=== PATIENT | female | born 1935 | race Caucasian/White ===

== ENCOUNTER 2017-01-19 20:09 | Emergency (ER) | payer MEDICARE, BC ==
--- NOTE | ~2017-01-19 | EKG ---
PATIENT: NAVEED MALONEY UNIT #: [id number] Ventricular Rate: 65 BPM Atrial Rate: 65 BPM P-R Interval: 224 ms QRS Duration: 90 ms Q-T Interval: 408 ms QTC Calculation(Bezet): 424 ms P [place]: 34 degrees Calculated R [place]: 32 degrees Calculated T [place]: 3 degrees Diagnosis Line: Sinus rhythm with 1st degree A-V block Diagnosis Line: Nonspecific ST and T wave abnormality Diagnosis Line: Abnormal ECG Diagnosis Line: No previous ECGs available Diagnosis Line: Confirmed by LANCE SANTILLAN MD ([id number]) on 01/25/2017 Diagnosis Line: 2:27:01 PM INTERPRETING MD: JACQUE SALAS
--- NOTE | ~2017-01-19 | CT4 ---
[facility] A Service [facility] RADIOLOGY TEXT RESULTS PATIENT: NAVEED MALONEY LOCATION: [facility] : 37 UNIT #: [id number] AGE: [address]: Angelina Brandt MD SEX: F ORDER DR: [id number] [place], [place] [address] [id number] MR#: [id number] Acc #: [id number] NAME: NAVEED MALONEY : 1935 SEX: F STUDY DATE/TIME: 01/19/2017 22:48 UNIT: [facility] ROOM: STUDY DESCRIPTION: CT Abd and Pelv Wo Cont Attending Physician: Angelina Brandt M.D. Ordering Physician: Angelina Brandt M.D. Primary Care Physician: Jereym Dejesus Jr., M.D. MEDICAL IMAGING REPORT This report is preliminary unless electronic signature is present EXAM CT abdomen and pelvis without contrast INDICATIONS Generalized abdominal pain today. PROCEDURE Unenhanced CT of the abdomen and pelvis This CT exam was performed with one or more of the following radiation dose reduction techniques: automatic exposure control, adjustment of mA and/or kV according to patient size, and iterative reconstruction. COMPARISON None FINDINGS Abdomen without contrast: Minimal atelectasis in the lung bases. Cardiomegaly. Liver spleen adrenal glands pancreas gallbladder have an unremarkable unenhanced appearance. Moderate colonic stool burden. Nonobstructing calculi in both kidneys. There is no radiodense ureteral calculus or hydronephrosis. Calculi in the kidneys measure up to 5 mm. Pelvis without contrast: No radiodense bladder calculus. Previous hysterectomy. Lower abdominal midline fat-containing hernia measures 4.3 cm. No aggressive appearing bone lesion. [facility] A Service [facility] RADIOLOGY TEXT RESULTS PATIENT: NAVEED MALONEY LOCATION: [facility] : 39 UNIT #: [id number] AGE: [address]: Angelina Brandt MD SEX: F ORDER DR: IMPRESSION 1. No clearly acute finding. 2. Bilateral nonobstructing renal calculi. Dictated by... Dipak Ferreira M.D. THIS IS AN ELECTRONICALLY VERIFIED REPORT Dipak Ferreira M.D. at 01/25/2017 3:05 PM DC/xiomara TD: 01/20/2017 12:24 JOB #: [id number] MEDICAL IMAGING REPORT Page 1 of 1 COPY
--- NOTE | ~2017-01-19 | CR72 ---
[facility] A Service of [facility] RADIOLOGY TEXT RESULTS PATIENT: NAVEED MALONEY LOCATION: [facility] : 37 UNIT #: [id number] AGE: [address]: Angelina Brandt MD SEX: F ORDER DR: [id number] [facility] [address] [place], [place] [address] [id number] E MR#: [id number] Acc #: [id number] NAME: NAVEED MALONEY : 1935 SEX: F STUDY DATE/TIME: 01/19/2017 20:50 UNIT: [facility] ROOM: STUDY DESCRIPTION: CR Chest Single View Portable Attending Physician: Angelina Brandt M.D. Ordering Physician: Angelina Brandt M.D. Primary Care Physician: Jeremy Dejesus Jr., M.D. MEDICAL IMAGING REPORT This report is preliminary unless electronic signature is present EXAM Portable chest INDICATION Shortness of breath and chest pain today. COMPARISON 08/31/2016. FINDINGS Probable small left pleural effusion. This is stable. Atelectasis or consolidation in the left base. Heart size stable. No infiltrates on the right. IMPRESSION Stable probable small left pleural effusion with atelectasis or consolidation in the left base. Dictated by... Keivn Rascon M.D. THIS IS AN ELECTRONICALLY VERIFIED REPORT Kevin Rascon M.D. at 01/20/2017 7:45 PM KIMBERLY/henrietta TD: 01/20/2017 11:12 JOB #: [id number] MEDICAL IMAGING REPORT Page 1 of 1 COPY
[~2017-01-19 20:09] MED LIST: ALEVE; ASPIRIN81 M2 PO; CARBIDOPA-LEVO1 EAC1 PO; DARVOCET-N 1001 TAB; GENACOTE325 MG PO; KEPPRA500 M1 DOB; KLONOPIN0.5 M3 PO; LOPRESSOR PO; MILK OF MA800 MG/5 M PO; MOBIC PO; MULTI VITAMIN1 EACH PO; OVAR; PROVENTIL; QUETIAPINE FUMA25 MG PO; SEROQUEL25 MG DOB; SINEMET 25-2501 EACH PO; SINEMET CR 21 TAB.SA PO; SINEMET CR 51 TAB.SA PO; VICODIN 5/1 TAB 5/50 PO
[2017-01-19 21:08] LABS: URINE SOURCE CLEAN CATCH
[2017-01-19 21:23] LABS: URINE APPEARANCE CLEAR; URINE BLOOD NEG (NEG); URINE COLOR DK YELLOW; URINE GLUCOSE NEG (NEG); URINE KETONE 1+ (NEG); URINE LEUKOCYTE ESTERASE 1+ (NEG); URINE NITRATE NEG (NEG); URINE PROTEIN 1+ (NEG); URINE SPECIFIC GRAVITY 1.029 (1.003-1.035)
[2017-01-19 21:23] LABS: POC - CKMB <1.0 ng/mL (0.0-7.9); POC - TROPONIN <0.05 ng/mL (<=0.05)
[2017-01-19 21:25] LABS: BASOPHIL% 0.5 % (0-2.5); DIFF IND NO; EOSINOPHIL# 0.2 X10e3 (0-0.7); EOSINOPHIL% 1.7 % (0.0-7.0); HEMATOCRIT 38.3 % (35.0-45.0); HEMOGLOBIN 12.4 gm/dL (12.0-16.0); LYMPHOCYTE# 1.3 X10e3 (1.0-3.5); LYMPHOCYTE% 13.1 % (17.0-45.0); MEAN CELL VOLUME 91.3 FL (83-96); MEAN CORPUSCULAR HEMOGLOBIN 29.6 PG (28-34); MEAN CORPUSCULAR HGB CONC 32.4 g/dL (30-36); MEAN PLATELET VOLUME 8.3 FL (6.5-11.5); MONOCYTE# 0.9 X10e3 (0-1.0); MONOCYTE% 8.3 % (3.0-12.0); NEUTROPHIL# 7.9 X10e3 (1.5-7.1); NEUTROPHIL% 76.4 % (40-75); PLATELET COUNT 302 X10e3 (140-420); WHITE BLOOD COUNT 10.3 X10e3 (4.0-10.5)
[2017-01-19 21:28] LABS: CULTURE INDICATED? YES; URINE BACTERIA AUWI NEG (NEGATIVE); URINE SQUAMOUS EPITHELIAL CELL FEW /[HPF]
[2017-01-19 21:40] LABS: PARTIAL THROMBOPLASTIN TIME 28.4 SECONDS (23.5-31.3); PROTHROMBIN TIME (PATIENT) 10.7 SECONDS (10.0-11.7)
[2017-01-19 21:48] LABS: URINE BILIRUBIN NEG (NEG)
[2017-01-19 22:17] LABS: ALBUMIN SERUM 3.3 g/dL (3.5-5.0); ALKALINE PHOSPHATASE 53 U/L (32-92); ALT (SGPT) <5 U/L (10-40); AMYLASE 19 U/L (0-46); AST (SGOT) 11 U/L (10-42); BILIRUBIN, DIRECT 0.2 mg/dL (0.0-0.2); BILIRUBIN,INDIRECT 1.4 mg/dL (0.0-0.9); BILIRUBIN,TOTAL 1.6 mg/dL (0.2-2.0); BLOOD UREA NITROGEN 16 mg/dL (9-23); BUN/CREATININE RATIO 22.85; CALCIUM SERUM 8.4 mg/dL (8.4-10.2); CARBON DIOXIDE 30 mmol/L (22-31); CHLORIDE 103 mmol/L (100-111); CREATININE SERUM 0.7 mg/dL (0.6-1.4); GLOM FILT RATE Estimated 82.4 mL/min (>60); GLUCOSE FASTING 90 mg/dL (70-110); LIPASE 16 U/L (22-51); MAGNESIUM 1.9 mg/dL (1.6-3.0); POTASSIUM 3.5 mmol/L (3.5-5.1); PROTEIN TOTAL SERUM 6.2 g/dL (6.0-8.3); SODIUM 137 mmol/L (135-145)
[2017-01-19 23:57] LABS: POC - CKMB <1.0 ng/mL (0.0-7.9); POC - TROPONIN <0.05 ng/mL (<=0.05)
== END 2017-01-20 03:05 | disposition home or self-care (01) ==
LOC: CED 20:09
PROVIDERS: Student in an Organized Health Care Education/Training Program
DX: R10.9 Unspecified abdominal pain (principal); J44.9 Chronic obstructive pulmonary disease, unspecified; I10 Essential (primary) hypertension; Z79.899 Other long term (current) drug therapy; Z91.041 Radiographic dye allergy status; Z88.8 Allergy status to other drugs, medicaments and biological substances
CPT/HCPCS: 36415; 51701; 71010; 74176; 80048; 80076; 81003; 82150; 82553; 82947; 83605; 83690; 83735; 83880; 84484; 85025; 85610; 85730; 87040; 87086; 93005; 96361; 96374; 96375; 99285; C9113; J2270; J2405